=== PATIENT | male | born 1995 | race Caucasian/White ===

== ENCOUNTER 2018-11-30 12:38 | Emergency (ER) | payer SELFPAY ==
--- NOTE | 2018-11-30 13:03 | ER Document Report ---
ED Medical Screen (RME) - General Chief Complaint: Testicular Pain Stated Complaint: TESTICULAR PAIN Time Seen by Provider: 11/30/18 12:56 TRAVEL OUTSIDE OF THE [place] IN LAST 30 DAYS: No - HPI Notes: 11/30/18 13:01 Patient is a 22-year-old male with no significant past medical history who presents complaining of a constant aching pain to his testicles bilaterally, but more so on the left over the past week. He has not noticed any obvious testicular swelling, but states that his epididymis on the left side will sometimes become inflamed but will go down on its own. He is able to urinate without difficulty. He has not been sexually active in 2 years. Denies drug allergies. No other rash or lesion. Denies PAYAN, fever, neck pain, URI, CP, SOB, Abd pain, dysuria, back pain. I have treated and performed a rapid initial assessment of this patient. A comprehensive ED assessment and evaluation of the patient, analysis of test results and completion of medical decision making process will be conducted by additional ED providers. PHYSICAL EXAMINATION: GENERAL: Well-appearing, well-nourished and in no acute distress. A&Ox4. Answers questions appropriately. LUNGS: Breath sounds clear to auscultation bilaterally and equal. No wheezes rales or rhonchi. HEART: Regular rate and rhythm without murmurs, rubs, gallops. ABDOMEN: Soft, nondistended abdomen. No guarding, no rebound. Normal bowel sounds present. No CVA tenderness bilaterally. Grossly nontender (cannot elicit thorough abd exam w/o bed, however). : No erythema, rash, ecchymosis, necrosis, ulceration. No urethral discharge. Nontender to palpation of the testicles, epididymal sacs, scrotum, penis at this time. Cremasteric intact bilaterally. No transverse lie. - Related Data Allergies/Adverse Reactions: No Known Allergies Allergy (Unverified 11/30/18 12:39) Physical Exam - Vital signs Vitals: Temp Pulse Resp BP Pulse Ox 98.3 F 79 18 141/61 H 99 11/30/18 12:44 11/30/18 12:44 11/30/18 12:44 11/30/18 12:44 11/30/18 12:44 Course - Vital Signs Vital signs: Temp Pulse Resp BP Pulse Ox 98.3 F 79 18 141/61 H 99 11/30/18 12:44 11/30/18 12:44 11/30/18 12:44 11/30/18 12:44 11/30/18 12:44
[2018-11-30 14:41] LABS: APPEARANCE,URINE CLEAR; BILIRUBIN,URINE NEGATIVE (NEGATIVE); COLOR,URINE STRAW; GLUCOSE, URINE NEGATIVE (NEGATIVE); KETONES,URINE NEGATIVE (NEGATIVE); LEUKOCYTE ESTERASE,URINE NEGATIVE (NEGATIVE); NITRITE,URINE NEGATIVE (NEGATIVE); PROTEIN,URINE NEGATIVE (NEGATIVE); URINE SPECIFIC GRAVITY 1.004; UROBILINOGEN,URINE NEGATIVE mg/dL (<2.0)
--- NOTE | 2018-11-30 15:17 | RADIOLOGY REPORT (SQ) ---
EXAM DESCRIPTION: U/S SCROTUM W/DOPPLER COMPLETED DATE/TIME: 11/30/2018 3:08 pm REASON FOR STUDY: Lt sided pain COMPARISON: None. TECHNIQUE: Static and realtime dale scale imaging of the scrotum and testes. Selected color Doppler and spectral images recorded to document blood flow. LIMITATIONS: None. FINDINGS: RIGHT: TESTICLE: The right testicle measures 4.1 x 2.6 x 2.6 cm, normal size. Normal echotexture. Normal b lood flow. No mass. EPIDIDYMIS: The head of the epididymis measures 1.1 x 1.2 x 1.8 cm. A 1.0 x 1.0 x 0.9 cm cyst. HYDROCELE OR VARICOCELE: No. HERNIA OR EXTRA-TESTICULAR MASS: No. OTHER: No other significant finding. LEFT: TESTICLE: The left testicle measures 4.4 x 3.1 x 2.3 cm. Normal size. Normal echotexture. Normal b lood flow. No mass. EPIDIDYMIS: The head of the epididymis measures 0.6 x 0.7 x 0.8 cm. Normal. HYDROCELE OR VARICOCELE: No. HERNIA OR EXTRA-TESTICULAR MASS: No. OTHER: No other significant finding. IMPRESSION: 1. The testicles are unremarkable in appearance by ultrasound examination. 2. A cyst is identified in the head of the epididymis on the right. TECHNICAL DOCUMENTATION: JOB ID: [id number] All Rights Reserved Reading location - IP/workstation name: [email or web address]
--- NOTE | 2018-11-30 16:25 | ER Document Report ---
ED General - General Chief Complaint: Testicular Pain Stated Complaint: TESTICULAR PAIN Time Seen by Provider: 11/30/18 12:56 Mode of Arrival: Ambulatory Information source: Patient Notes: RME note: Patient is a 22-year-old male with no significant past medical history who presents complaining of a constant aching pain to his testicles bilaterally, but more so on the left over the past week. He has not noticed any obvious testicular swelling, but states that his epididymis on the left side will sometimes become inflamed but will go down on its own. He is able to urinate without difficulty. He has not been sexually active in 2 years. Denies drug allergies. No other rash or lesion. Denies PAYAN, fever, neck pain, URI, CP, SOB, Abd pain, dysuria, back pain. TRAVEL OUTSIDE OF THE [place] IN LAST 30 DAYS: No - Related Data Allergies/Adverse Reactions: No Known Allergies Allergy (Unverified 11/30/18 12:39) Past Medical History - Social History Smoking Status: Current Every Day Smoker Chew tobacco use (# tins/day): No Frequency of alcohol use: Occasional Drug Abuse: Marijuana Patient has suicidal ideation: No Patient has homicidal ideation: No Renal/ Medical History: Denies: Hx Peritoneal Dialysis Physical Exam - Vital signs Vitals: Temp Pulse Resp BP Pulse Ox 98.3 F 79 18 141/61 H 99 11/30/18 12:44 11/30/18 12:44 11/30/18 12:44 11/30/18 12:44 11/30/18 12:44 Course - Vital Signs Vital signs: Temp Pulse Resp BP Pulse Ox 98.3 F 79 18 141/61 H 99 11/30/18 12:44 11/30/18 12:44 11/30/18 12:44 11/30/18 12:44 11/30/18 12:44
--- NOTE | 2018-11-30 16:54 | ER Document Report ---
ED General - General Chief Complaint: Testicular Pain Stated Complaint: TESTICULAR PAIN Time Seen by Provider: 11/30/18 12:56 Mode of Arrival: Ambulatory Information source: Patient TRAVEL OUTSIDE OF THE [place] IN LAST 30 DAYS: No - HPI Patient complains to provider of: Testicular discomfort Onset: Last week Onset/Duration: Constant Quality of pain: Achy, Dull Severity: Moderate Pain Level: 2 Associated symptoms: None. denies: Chills, Fever Exacerbated by: Denies Relieved by: Denies Similar symptoms previously: No Recently seen / treated by doctor: No Notes: 22-year-old male coming in today chief complaint of aching testicles bilaterally for the past week. Left is aching more than the right. Patient states that he feels like he may have epididymal soreness because the epididymis on the left testicle seems to swell up and hurt more periodically. He is not h aving any dysuria. Not having any urethral discharge. No fevers or chills. - Related Data Allergies/Adverse Reactions: No Known Allergies Allergy (Unverified 11/30/18 12:39) Past Medical History - General Information source: Patient - Social History Smoking Status: Current Every Day Smoker Chew tobacco use (# tins/day): No Frequency of alcohol use: Occasional Drug Abuse: Marijuana Family History: Reviewed & Not Pertinent Patient has suicidal ideation: No Patient has homicidal ideation: No Renal/ Medical History: Denies: Hx Peritoneal Dialysis Review of Systems - Review of Systems Notes: Constitutional: No fevers. No chills. EENT: No eye redness. No eye pain. No ear pain. No sore throat. Cardiovascular: No chest pain. No palpitations. Respiratory: No cough. No shortness of breath. No respiratory distress. Gastrointestinal: No abdominal pain. No nausea, vomiting, or diarrhea. Genitourinary: Positive for testicular pain Musculoskeletal: Atraumatic. No swelling. No deformities. Skin: No rash or lesions. Lymphatic: No swollen lymph nodes. Neurologic: No headache. No syncope. Psychiatric: No suicidal or homicidal ideation. Physical Exam - Vital signs Vitals: Temp Pulse Resp BP Pulse Ox 98.3 F 79 18 141/61 H 99 11/30/18 12:44 11/30/18 12:44 11/30/18 12:44 11/30/18 12:44 11/30/18 12:44 - Notes Notes: General: Well-developed, well-nourished. In no acute distress. Non-toxic appearing. Cardiac: Well-perfused. Regular rate and rhythm. No murmurs, rubs, or gallops. Pulmonary: No respiratory distress. No cyanosis. Bilateral lung fiels are clear to auscultation. Abdominal: Non-distended. Non-rigid. Bowels sounds are present in all four qu adrants. No guarding or rebound. HEENT: Head is atraumatic. Conjunctivae not reddened. No tearing. PERRL. EOMI. Orbits atraumatic. No periorbital swelling or erythema. Oropharynx is without erythema, swelling, or exudates. Neck: Supple. No adenopathy. No meningismus. Dermatologic: Warm with good turgor. No rash. Atraumatic. Chest: Atraumatic. No chest wall tenderness to palpation. Musculoskeletal: Moves all extremities well. No range of motion deficits. no muscular or joint tenderness. No paraspinal muscle tenderness. no midline spinal tenderness or step-off. Genitourinary: Testicles examined. Negative Prehn sign. slight tenderness of the left epididymis. no testicular swelling. Neurologic: No gross neurologic deficits. Psychiatric: Normal mood. Course - Re-evaluation Re-evalutation: 11/30/18 16:54 Ultrasound is negative. Urinalysis also negative. I will start the patient on doxycycline 100 mg twice a day for 7 days. I will give him the number for the urology clinic if this discomfort continues after the antibiotics. - Vital Signs Vital signs: Temp Pulse Resp BP Pulse Ox 98.3 F 79 18 141/61 H 99 11/30/18 12:44 11/30/18 12:44 11/30/18 12:44 11/30/18 12:44 11/30/18 12:44 Discharge - Discharge Clinical Impression: Testicular pain Condition: Good Disposition: HOME, SELF-CARE Instructions: Epididymitis ([facility]) Additional Instructions: Ibuprofen as needed for pain. Doxycycline 1 tablet by mouth twice a day for 1 week. If not better, you need to follow-up with the urology service. You will find the phone number for this practice in your discharge paperwork. Prescriptions: Doxycycline Hyclate 100 mg PO BID #14 capsule Referrals: AGGIE OCAMPO MD [NO LOCAL MD] - Follow up in 1 week
[2018-11-30 17:36] LABS: CHLAM PCR NOT DETECTED (NOT DETECT); GON PCR NOT DETECTED (NOT DETECT)
[2018-11-30 18:02] VITALS: BP 103/55
== END 2018-11-30 18:02 | disposition home or self-care (01) ==
LOC: ER 12:38
DX: N50.812 Left testicular pain (principal); N50.811 Right testicular pain; F17.200 Nicotine dependence, unspecified, uncomplicated
CPT/HCPCS: 76870; 81001; 87086; 87491; 87591; 93976; 99284

== ENCOUNTER 2019-08-16 16:17 | Emergency (ER) | payer OTHER ==
[2019-08-16 16:35] VITALS: BP 129/91
--- NOTE | 2019-08-16 17:17 | ER Document Report ---
HPI - HPI Time Seen by Provider: 08/16/19 16:36 Pain Level: 2 Context: Patient is a 23-year-old male who presents to the emergency department with a chief complaint of a rash to his bilateral hands. Patient used to work at [employer] and was constantly wearing gloves. States that he noticed it was getting worse. He has had his symptoms for the past 2 weeks. He has not taken any antibiotics. Denies any fever, body aches, or chills. - ROS Systems Reviewed and Negative: Yes All other systems reviewed and negative - CONSTITUTIONAL Constitutional: DENIES: Fever, Chills - REPRODUCTIVE Reproductive: DENIES: : - MUSCULOSKELETAL Musculoskeletal: REPORTS: Extremity pain - Bilateral hands, Swelling - Bilateral hands - DERM Skin Color: Normal, Erythema - Bilateral hands Skin Problems: Rash - Bilateral hands Past Medical History - Social History Smoking Status: Unknown if Ever Smoked Frequency of alcohol use: None Drug Abuse: None Family History: Reviewed & Not Pertinent Patient has suicidal ideation: No Patient has homicidal ideation: No Renal/ Medical History: Denies: Hx Peritoneal Dialysis Vertical Provider Document - CONSTITUTIONAL Agree With Documented VS: Yes Exam Limitations: No Limitations General Appearance: No Apparent Distress - INFECTION CONTROL TRAVEL OUTSIDE OF THE [place] IN LAST 30 DAYS: No - HEENT HEENT: Atraumatic, Normocephalic, PERRLA - NECK Neck: Normal Inspection - RESPIRATORY Respiratory: No Respiratory Distress - CARDIOVASCULAR Cardiovascular: Regular Rhythm, Tachycardia Pulses: Normal: Radial - MUSCULOSKELETAL/EXTREMETIES Musculoskeletal/Extremeties: FROM, Tender, Edema - Bilateral hands - NEURO Level of Consciousness: Awake, Alert, Appropriate Motor/Sensory: No Motor Deficit, No Sensory Deficit - DERM Integumentary: Warm, Dry, Rash - Bilateral hands; dry skin noted Course - Re-evaluation Re-evalutation: 08/16/19 17:17 Dr. Mark Rasheed assessed the patient and he agrees me with me that the patient does not have necrotizing fasciitis. Patient will be started on steroids. He will also be started on Keflex for cellulitis. Advised the patient to use Cetaphil lotion to help with the dryness in his hands. Follow-up precautions were given. Verbal discharge instructions were given to the patient. They verbalized understanding. They are stable for discharge. - Vital Signs Vital signs: Temp Pulse Resp BP Pulse Ox 98.6 F 105 H 20 129/91 H 98 08/16/19 16:32 08/16/19 16:32 08/16/19 16:32 08/16/19 16:32 08/16/19 16:32 Discharge - Discharge Clinical Impression: Rash Cellulitis Qualifiers: Site of cellulitis: extremity Site of cellulitis of extremity: upper extremity Laterality: unspecified laterality Qualified Code(s): L03.119 - Cellulitis of unspecified part of limb Contact dermatitis Qualifiers: Contact dermatitis type: unspecified Contact dermatitis trigger: unspecified trigger Qualified Code(s): L25.9 - Unspecified contact dermatitis, unspecified cause Condition: Stable Disposition: HOME, SELF-CARE Additional Instructions: You were seen today in the emergency department for a rash to her hands. You are being placed on antibiotics to help treat cellulitis, which is an infection in the skin. You are also being placed on steroids to help with inflammation. Please continue to take Pepcid, 20 mg twice a day for the next 6 days. Follow- up with [facility] or [facility] in regards to this visit. Prescriptions: Vit E Acet/Gly/Dimeth/Water [Cetaphil Moisturizing Lotion] 473 ml TP BID #1 lotion Prednisone [Deltasone 20 mg Tablet] 3 tab PO DAILY 5 Days #15 tablet Cephalexin Monohydrate [Keflex 500 mg Capsule] 500 mg PO Q6H 7 Days #28 capsule Famotidine [Pepcid 20 mg Tablet] 20 mg PO BID #12 tablet Referrals: [facility] [Provider Group] - Follow up in 3-5 days [facility] [Provider Group] - Follow up in 3-5 days
== END 2019-08-16 17:30 | disposition home or self-care (01) ==
LOC: ER 16:17
DX: L03.119 Cellulitis of unspecified part of limb (principal); L25.9 Unspecified contact dermatitis, unspecified cause; R21 Rash and other nonspecific skin eruption
CPT/HCPCS: 99282